=== PATIENT | female | born 1930 | race Caucasian/White ===

== ENCOUNTER 2016-08-23 22:00 | Inpatient (IN) | payer MEDICARE ==
--- NOTE | ~2016-08-23 | HP ---
History And Physical [address] [place]. [address] NAME: CHAPIN WHITLEY : 29 STATUS : ADM IN [facility]#: [id number] AGE: 85 ADM/REG DATE : 08/24/16 MR#: [id number] REPORT SERV DATE: 08/24/16 DICTATED BY: ZAID REEVES DATE: 08/24/16 REPORT STATUS : Draft TRANSCRIBED BY: MODL DATE: 08/24/16 DATE OF ADMISSION: 08/24/2016 CHIEF COMPLAINT: An 85-year-old female, presenting with volume overload, shortness of breath. HISTORY OF PRESENT ILLNESS: The patient's history was obtained through careful interview with the patient and daughter coupled with review of [facility] and [facility] medical records. For reasons unknown to the family, the patient was told to come off her diuretics about two to three weeks ago. This seems to be directly correlate to the patient's increasing illness. Over the last week in particular, she has had massive lower extremity edema to the point where she cannot even walk without assistance and she has had increasing shortness of breath characterized by dyspnea on exertion, but also orthopnea, paroxysmal nocturnal dyspnea, as the patient has been having to sleep in a recliner sitting up at night. She describes a nonproductive cough, abdominal bloating. She has had a poor appetite, but no nausea or vomiting. No abdominal pain. No chest pain. No headache. No back pain. No pain complaints whatsoever. She does not even have pain related to her swelling. REVIEW OF SYSTEMS: Otherwise, a 14-point review of systems was obtained was negative. PAST MEDICAL HISTORY: 1. Atrial fibrillation, supraventricular tachycardia. 2. Diastolic congestive heart failure. 3. Hypertension. 4. Diabetes. 5. Possible pulmonary fibrosis. 6. Pneumonia in 2004. 7. Thyroid nodule. 8. Shingles with post-herpetic neuralgia. 9. Remote DVT. 10.Compression fracture of the spine. PAST SURGICAL HISTORY: Cholecystectomy. ALLERGIES: SULFA. SOCIAL HISTORY: No tobacco abuse. No alcohol abuse. Has been a for 7 years. Lives with her son. Ambulates with a cane, has supportive daughter at bedside. History And Physical [address] [address] NAME: CHAPIN WHITLEY : 29 STATUS : ADM IN PAT#: [id number] AGE: 85 ADM/REG DATE : 08/24/16 MR#: [id number] REPORT SERV DATE: 08/24/16 DICTATED BY: ZAID REEVES DATE: 08/24/16 REPORT STATUS : Draft TRANSCRIBED BY: SHANITA DATE: 08/24/16 FAMILY HISTORY: Mother at young age. Father with cancer. CURRENT MEDICATIONS: Include Lipitor 5 mg p.o. daily, Cardizem CD 360 mg p.o. daily, Neurontin 200 mg p.o. b.i.d., Toprol-XL 100 mg p.o. b.i.d., Starlix 120 mg p.o. t.i.d., Xarelto 20 mg p.o. daily, Janumet 50/500 p.o. b.i.d., vitamin D supplement and supplement with vitamin C, vitamin E, zinc copper lutein. PHYSICAL EXAMINATION: VITAL SIGNS: Temperature 97.8, pulse 118, blood pressure 133/79, respiratory rate 16, and O2 saturation 88% on room air. GENERAL: An ill-appearing female, in evidence of distress secondary to shortness of breath. HEENT: Pupils equal, round, and reactive to light. No conjunctival pallor. No scleral icterus. Nares are patent. Oropharynx is clear of obstruction. Moist mucous membranes. NECK: Trachea midline. No thyromegaly. LYMPH: No cervical lymphadenopathy. No supraclavicular lymphadenopathy. RESPIRATORY: The patient has wet rales on examination that predominate all the way to about 3/4 up the lung field bilaterally and symmetrically. She has dullness to percussion suggest quite large bilateral pleural effusions by exam. No wheezes. The patient has a labored respiratory effort. CARDIOVASCULAR: Tachycardic, irregularly irregular. No murmurs, rubs, or gallops. The patient does have deeply pitting edema probably about two or so centimeters in depth around her shins and ankles and the edema extends all the way up into her groin area symmetrically. ABDOMEN: Quite distended by examination. No tympanic resonance on percussion, but nontender throughout. No hepatosplenomegaly. DERMATOLOGICAL: Warm and dry extremities. No pallor. No cyanosis. A slight erythema related to patient's severe lower extremity edema and swelling. PSYCHIATRIC: Normal affect. Good mood. Alert and oriented x3. LABORATORY DATA: White blood cell count 8.5, hemoglobin 14, hematocrit 43, platelets 269, sodium 139, potassium 4.2 chloride 103, bicarb 25, BUN 15, creatinine 0.96, glucose 107, brain natriuretic peptide 636, troponin negative. INR 1.3. STUDIES: 1. Chest x-ray by my own evaluation shows cardiomegaly, pulmonary edema, bilateral pleural effusions. 2. EKG by my own evaluation shows rapid atrial fibrillation, low QRS voltage, left posterior fascicular block. ASSESSMENT AND PLAN: 1. Hypoxic respiratory failure, provide supportive care. 2. Congestive heart failure exacerbation, check an echocardiogram to define function. Place on IV diuretic, beta-casper. Add KAVIN inhibitor. 3. Rapid atrial fibrillation. Check telemetry. Continue Xarelto and continue beta casper and Cardizem and add p.r.n. p.o. short-acting Cardizem for elevated pulse. History And Physical [address] [address] NAME: CHAPIN WHITLEY : 29 STATUS : ADM IN [facility]#: [id number] AGE: 85 ADM/REG DATE : 08/24/16 MR#: [id number] REPORT SERV DATE: 08/24/16 DICTATED BY: ZAID REEVES DATE: 08/24/16 REPORT STATUS : Draft TRANSCRIBED BY: SHANITA DATE: 08/24/16 KPL/SHANITA Zaid Reeves M.D. / [id number] CC: Jose Myrick M.D. Gordon Graham, M.D.
--- NOTE | ~2016-08-23 | CN ---
Consultation Report [facility] [address] [place]. [address] NAME: CHAPIN WHITLEY : 28 STATUS : ADM IN PAT#: [id number] AGE: 85 ADM/REG DATE : 08/24/16 MR#: [id number] REPORT SERV DATE: 08/24/16 DICTATED BY: AMARI DOMINIQUE DATE: 08/24/16 REPORT STATUS : Draft TRANSCRIBED BY: MODL DATE: 08/24/16 CARDIOVASCULAR CONSULTATION DATE OF CONSULTATION: 08/24/2016 INDICATION: Congestive heart failure. HISTORY OF PRESENT ILLNESS: This is an 85-year-old patient of my partner, Dr. Charli Casarez. She has a history of chronic atrial fibrillation with a rate control and anticoagulation strategy. She has a history of chronic kidney disease, obstructive sleep apnea, and chronic mixed systolic and diastolic congestive heart failure. She saw Dr. Casarez about a week ago. The patient says Dr. Casarez stopped multiple medications including her diuretics. The office note, however, just says he increased the Cardizem from 240-360 mg daily. However, no diuretics are listed on the home office medicine sheet. The patient is admitted with worsening dyspnea, lower extremity edema, and is found to have acute on chronic mixed systolic and diastolic congestive heart failure. She remains quite volume overloaded. An echo this admission read by Dr. Casarez demonstrates an EF declined from 45% to 30%. The patient denies any symptoms of chest pain. She has not had any palpitations. She actually feels better since admission. PAST MEDICAL HISTORY: 1. Chronic combined systolic and diastolic congestive heart failure. 2. Chronic kidney disease. 3. Hypertension. 4. Hypercholesterolemia. 5. Obstructive sleep apnea. 6. Chronic atrial fibrillation. ALLERGIES: SULFA AND TRAMADOL. MEDICATIONS: On admission, include Lipitor 10 mg daily, Cardizem CD 360 mg daily, Neurontin, Toprol-XL 100 mg twice a day, Starlix, Xarelto 20 mg daily, Janumet, multivitamin. SOCIAL HISTORY: She does not smoke or drink alcohol. FAMILY HISTORY: There is no family history of early coronary artery disease. REVIEW OF SYSTEMS: A complete review of systems was obtained, which is negative in detail except as mentioned above in the HPI. Consultation Report [facility] [address] [facility] [place]. [address] NAME: CHAPIN WHITLEY : 29 STATUS : ADM IN PAT#: [id number] AGE: 85 ADM/REG DATE : 08/24/16 MR#: [id number] REPORT SERV DATE: 08/24/16 DICTATED BY: AMARI DOMINIQUE DATE: 08/24/16 REPORT STATUS : Draft TRANSCRIBED BY: SHANITA DATE: 08/24/16 PHYSICAL EXAMINATION: VITAL SIGNS: Blood pressure 110/70, heart rate of 80 and regular, respiratory rate of 14. GENERAL: Comfortable in no acute distress. HEENT: Anicteric. No xanthelasma. Lips without cyanosis. NECK: No JVD. Carotids 2+ and symmetric. No carotid bruits. LUNGS: CTA bilaterally. No wheezes or rhonchi. No accessory muscle use. COR: Irregularly irregular. Normal S1, S2. ABD: Soft, nontender, nondistended. Normal bowel sounds. No abdominal bruits. EXT: There was 2+ bilateral lower extremity edema. SKIN: Warm. Dry. No venous stasis changes. MS: No kyphosis. NEURO/PSYCH: Oriented x3. No anxiety or depression. LABORATORY STUDIES: White count of 8.4, hematocrit of 41.9. Creatinine of 1.2, potassium 4.9. BNP of 636. Troponin less than 0.02 x2. Telemetry strip show atrial fibrillation rate in the 80s. I reviewed an echocardiogram report described above demonstrating EF declined from 45% to 30%. IMPRESSION: This is an 85-year-old woman with acute on chronic mixed systolic and diastolic congestive heart failure. There is some confusion about medicine changes as an outpatient. This may have contributed to her hospital admission. She is quite volume overloaded still. I agree with plans for aggressive IV diuresis. She may do better on a beta-casper than calcium channel casper given her systolic dysfunction. I will have Dr. Casarez address her medicines when he returns in the morning. WW/SHANITA ari Dominique M.D. / [id number] CC: Jose Fowler M.D.
--- NOTE | ~2016-08-23 | DS ---
Discharge Summary [facility] [address] [place]. [address] NAME: CHAPIN WHITLEY : 28 STATUS : DIS IN PAT#: [id number] AGE: 85 ADM/REG DATE : 08/24/16 MR#: [id number] REPORT SERV DATE: 08/27/16 DICTATED BY: DATE: REPORT STATUS : Draft TRANSCRIBED BY: MODL DATE: 08/27/16 ADMISSION DATE: 08/24/2016 DISCHARGE DATE: 08/27/2016 The patient was admitted to the [facility]. CONSULTANTS: Dr. Charli Casarez. DISCHARGE DIAGNOSES: 1. Acute congestive heart failure exacerbation - mixed systolic and diastolic. Ejection fraction 30%. 2. Chronic atrial fibrillation with rapid ventricular response at admission. Now rate controlled, on chronic anticoagulation with history of failed cardioversion in the past. 3. Hypotension at admission - resolved. Intolerant of KAVIN inhibitor due to hypotension. 4. Ien-mezvgza-ifuywxvcu diabetes mellitus type 2 with hypoglycemia during hospitalization and hemoglobin A1c of 5.3. Starlix discontinued for re-evaluation for discontinuation of Janumet in the outpatient setting. 5. Hyperlipidemia. 6. History of spinal compression fracture. 7. History of remote DVT. 8. Bilateral lower extremity lymphedema - chronic. 9. History of shingles. 10.Postherpetic neuralgia. 11.Possible history of pulmonary fibrosis. 12.Possible obstructive sleep apnea with long-term nocturnal oxygen usage. 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 14.Urinary tract infection - likely due to Hernández catheterization during the hospitalization. Culture pending at the time of discharge. 15.Acute on chronic hypoxemic respiratory failure due to congestive heart failure exacerbation - resolved. IMAGIN. PA lateral chest x-ray 08/23/2016 for shortness of breath shows marked cardiomegaly with pleural effusions and an old compression injury of the lower thoracic spine. 2. Portable chest x-ray 08/24/2016 showing improving congestive heart failure pattern compared to 08/23/2016. 3. Echocardiogram 08/24/2016 shows severe left ventricular dysfunction with ejection fraction of 31%, previously noted 45-50%. Anteroseptal wall akinesis has progressed. Moderate right ventricular dysfunction noted previously. Mild right ventricular dilatation noted previously. Biatrial dilatation noted previously. Mild mitral valvular regurgitation. PERTINENT LABS: White blood cell count throughout admission was normal, hemoglobin values ranging from 12-14, platelet count normal. Coagulation studies with INR between 1.3 and 3.1, on anticoagulation. Creatinine values ranging from 0.96-1.23. Electrolytes normal. Discharge Summary [facility] [id number] [place]. [address] NAME: CHAPIN WHITLEY : 28 STATUS : DIS IN PAT#: [id number] AGE: 85 ADM/REG DATE : 08/24/16 MR#: [id number] REPORT SERV DATE: 08/27/16 DICTATED BY: DATE: REPORT STATUS : Draft TRANSCRIBED BY: MODL DATE: 08/27/16 Glucose values 88-130 off medications during admission. BNP 636, troponin times 2 negative. TSH normal. Hemoglobin A1c 5.3. Urinalysis with greater than 182 white blood cells and large amount of leukocyte esterase with culture pending at the time of discharge. BRIEF HISTORY: For full details, please see the previously dictated history of present illness by Kolby Perez. This is an 85-year-old female, presenting with shortness of breath and increasing dyspnea. Reportedly, she was told to come off her diuretic (Bumex) by her nuclear cardiology technologist several weeks ago, and thereafter, developed increasing lower extremity edema, difficulty ambulating due to edema, and increasing shortness of breath characterized primarily by dyspnea on exertion but also orthopnea, paroxysmal nocturnal dyspnea. She also reported some increased abdominal girth. Labs and imaging in the emergency department were consistent with acute congestive heart failure exacerbation, and the patient was admitted to the Hospitalist Service for further management. HOSPITAL COURSE: The patient was admitted to [address] [place] [address], on the congestive heart failure order set. She was placed on IV Lasix and a Hernández catheter was placed at her request for increased urinary frequency on Lasix. With this, she diuresed well, had improvement in her edema and her shortness of breath, and did not require supplemental oxygen during the day further. For her atrial fibrillation with rapid ventricular response, she was placed on her home medications of Toprol-XL and Cardizem, withhold parameters as she was hypotensive initially. This was felt most likely due to lisinopril which was discontinued. She can be considered intolerant of lisinopril due to hypotension, and is not being discharged on lisinopril despite congestive heart failure because of intolerance. The patient's creatinine remained stable between 0.9 and 1.2 on diuretics, and she appears to have some chronic kidney disease, stage II, which is mild and did not require any nephrology evaluation this admission. She also was noted to have hypoglycemia with blood sugars ranging from 88 to 130 off medications this admission. She takes three oral hypoglycemics at home and one is being discontinued for discharge, for re-evaluation by her primary care provider. Her hemoglobin A1c is 5.3, and she is probably prone to hypoglycemia as an outpatient. Her Hernández catheter was discontinued when the IV Lasix was discontinued on the third day of hospitalization, and she complained of some dysuria. A urinalysis was obtained, and showed large amount of leukocyte esterase, with greater than 182 white blood cells. She has been treated with Levaquin for presumptive urinary tract infection. The culture results will need to be followed up as an outpatient to determine adequacy of empiric antibiotic selection. DISCHARGE DISPOSITION: The patient is being discharged to home in the care of her son with no specific activity restrictions. She should resume her home oxygen 2-3 L nightly per prior regimen. She should adhere to a cardiac, 1200 mL fluid restricted diet at discharge. Home health is being set up for medication management, disease education, and home physical Discharge Summary [address] [address] NAME: CHAPIN WHITLEY : 28 STATUS : DIS IN PAT#: [id number] AGE: 85 ADM/REG DATE : 08/24/16 MR#: [id number] REPORT SERV DATE: 08/27/16 DICTATED BY: DATE: REPORT STATUS : Draft TRANSCRIBED BY: MODObinna DATE: 08/27/16 therapy for additional strengthening. She will have multiple followup appointments including with primary care provider, Chidi Hurd, in 7-14 days for a repeat urinalysis and review of urine culture results from [facility]. She also needs to follow up with nuclear cardiology technologist, Dr. Casarez, in two to four weeks regarding congestive heart failure and atrial fibrillation. DISCHARGE MEDICATIONS: Include: 1. Lipitor 5 mg p.o. at bedtime. 2. Cardizem 360 mg p.o. at bedtime. 3. Neurontin 200 mg p.o. twice a day. 4. Toprol-XL 100 mg p.o. twice a day. 5. Xarelto 20 mg p.o. at bedtime. 6. Janumet 50/500, one tablet p.o. twice a day. 7. PreserVision one tablet p.o. twice a day. 8. Vitamin D 1000 international units p.o. daily. 9. Bumex 1 mg p.o. daily. 10.Levaquin 750 mg p.o. daily for four days to start on 08/28/2016 - to complete a five- day total course. 11.Her Starlix was discontinued for reasons noted above. Thirty five minutes was spent in completion of the discharge. LIZZIE/SHANITA Jarek Betts M.D. / [id number] CC: Jose Fowler M.D. Gordon Graham, M.D.
[~2016-08-23 22:00] MED LIST: ASABAYER PO; BUM1 PO; CORDARONE PO; FOSAMAX70 MG PO; HYZAAR 50/12.51 TAB PO; JANUMET1 TA1 PO; JANUMET1 TAB PO; KLOR-CON M2020 MEQ PO; LIPITOR10 PO; LOP25 PO; NEUR300 PO; NEUR600 PO; STARLIX120 PO; TOPXL100 PO; XARELTO20 MG PO
[2016-08-23 22:39] LABS: INTERNATIONAL NORMAL RATI 1.3 UNITS (-); PROTIME (NOT ORD) 16.2 SEC (12.0-14.5)
[2016-08-23 23:29] LABS: BASOPHILS 0.2 %; BASOPHILS ABSOLUTE 0.02 10/3/uL (0.0-0.16); EOSINOPHILS 1.8 %; EOSINOPHILS ABSOLUTE 0.15 10/3/uL (0.0-0.53); HEMATOCRIT 42.9 % (36.0-48.0); HEMOGLOBIN 14.5 g/dL (12.0-16.0); IMMATURE GRANULOCYTES 0.5 %; IMMATURE GRANULOCYTES ABSOLUTE 0.04 10/3/uL (0.0-0.11); LYMPHOCYTES 20.6 %; LYMPHOCYTES ABSOLUTE 1.76 10/3/uL (0.67-4.30); MEAN CORPUS HGB CONC 33.8 g/dL (32.0-36.0); MEAN CORPUSCULAR HEMOGLOB 31.9 pg (26.0-34.0); MEAN CORPUSCULAR VOLUME 94.3 fL (80-100); MEAN PLATELET VOLUME 9.9 fL (9.2-13.0); MONOCYTES 13.2 %; MONOCYTES ABSOLUTE 1.13 10/3/uL (0.21-1.20); NEUTROPHILS 63.7 %; NEUTROPHILS ABSOLUTE 5.44 10/3/uL (2.02-8.40); PLATELET COUNT 269 10/3/uL (150-400); RBC DISTRIBUTION WIDTH 15.3 % (12.0-16.0); RED CELL COUNT 4.55 10/6/uL (4.0-5.6); WHITE BLOOD CELLS 8.5 10/3/uL (4.5-10.5)
[2016-08-23 23:31] LABS: ER CBC TAT 0 Hrs 59 Mins; MANUAL DIFF NO %
[2016-08-23 23:43] LABS: BUN (BLOOD UREA NITROGEN) 15 MG/DL (6-23); CALCIUM, SERUM 8.7 MG/DL (8.5-10.4); CHEST PAIN PROFILE TAT 0 Hrs 14 Mins; CHLORIDE, SERUM 103 MMOL/L (96-112); CO2 (CARBON DIOXIDE) 25 MMOL/L (24-34); CREATININE 0.96 MG/DL (0.55-1.02); GFR AFRICAN AMERICAN 62 ML/MIN (>=60); GFR NON AFRICAN AMERICAN 54 ML/MIN (>=60); GLUCOSE, SERUM 107 MG/DL (60-99); POTASSIUM, SERUM 4.2 MMOL/L (3.5-5.3); SODIUM, SERUM 139 MMOL/L (135-148); TROPONIN I <0.02 NG/ML (<0.05)
[2016-08-24] MEDS ORDERED: LIPITOR10 PO (01:07)
[2016-08-24] MEDS ORDERED: CARDCD360 PO (01:07)
[2016-08-24] MEDS ORDERED: NEUR600 PO (01:09)
[2016-08-24] MEDS ORDERED: TOPXL100 PO (01:10)
[2016-08-24] MEDS ORDERED: JANUMET1 TA1 PO (01:10)
[2016-08-24] MEDS ORDERED: XARELTO20 MG PO (01:11)
[2016-08-24] MEDS ORDERED: STARLIX120 PO (01:11)
[2016-08-24] MEDS ORDERED: PRESERVISION A1 EAC1 PO (01:12)
[2016-08-24] MEDS ORDERED: VITAMIN D31000 UNIT PO (01:13)
[2016-08-24 09:53] LABS: BASOPHILS 0.4 %; BASOPHILS ABSOLUTE 0.03 10/3/uL (0.0-0.16); EOSINOPHILS 1.3 %; EOSINOPHILS ABSOLUTE 0.11 10/3/uL (0.0-0.53); HEMATOCRIT 41.9 % (36.0-48.0); HEMOGLOBIN 13.8 g/dL (12.0-16.0); IMMATURE GRANULOCYTES 0.2 %; IMMATURE GRANULOCYTES ABSOLUTE 0.02 10/3/uL (0.0-0.11); LYMPHOCYTES 15.2 %; LYMPHOCYTES ABSOLUTE 1.28 10/3/uL (0.67-4.30); MEAN CORPUS HGB CONC 32.9 g/dL (32.0-36.0); MEAN CORPUSCULAR HEMOGLOB 31.2 pg (26.0-34.0); MEAN CORPUSCULAR VOLUME 94.6 fL (80-100); MEAN PLATELET VOLUME 10.2 fL (9.2-13.0); MONOCYTES 15.7 %; MONOCYTES ABSOLUTE 1.32 10/3/uL (0.21-1.20); NEUTROPHILS 67.2 %; NEUTROPHILS ABSOLUTE 5.65 10/3/uL (2.02-8.40); PLATELET COUNT 278 10/3/uL (150-400); RBC DISTRIBUTION WIDTH 15.4 % (12.0-16.0); RED CELL COUNT 4.43 10/6/uL (4.0-5.6); WHITE BLOOD CELLS 8.4 10/3/uL (4.5-10.5)
[2016-08-24 09:54] LABS: MANUAL DIFF NO %
[2016-08-24 09:59] LABS: INTERNATIONAL NORMAL RATI 3.1 UNITS (-)
[2016-08-24 10:01] LABS: PROTIME (NOT ORD) 31.7 SEC (12.0-14.5)
[2016-08-24 10:08] LABS: A/G RATIO 0.9 (0.7-1.9); ALBUMIN 2.9 G/DL (3.5-5.0); ALKALINE PHOSPHATASE 73 U/L (45-117); CALCIUM, SERUM 8.3 MG/DL (8.5-10.4); CHLORIDE, SERUM 104 MMOL/L (96-112); CO2 (CARBON DIOXIDE) 29 MMOL/L (24-34); CREATININE 1.16 MG/DL (0.55-1.02); GFR AFRICAN AMERICAN 49 ML/MIN (>=60); GFR NON AFRICAN AMERICAN 43 ML/MIN (>=60); GLOBULIN 3.2 G/DL (2.5-4.1); SGPT(ALT) 33 U/L (5-65); SODIUM, SERUM 138 MMOL/L (135-148); TOTAL PROTEIN 6.1 G/DL (6.0-8.5); TROPONIN I <0.02 NG/ML (<0.05)
[2016-08-24 10:09] LABS: BUN (BLOOD UREA NITROGEN) 19 MG/DL (6-23); GLUCOSE, SERUM 133 MG/DL (60-99); POTASSIUM, SERUM 4.9 MMOL/L (3.5-5.3); SGOT(AST) 34 U/L (5-40); TOTAL BILIRUBIN 0.6 MG/DL (0-1.2)
[2016-08-24 10:10] LABS: CK-MB 0.7 NG/ML; CPK 122 U/L (0-200)
[2016-08-25 06:10] LABS: BASOPHILS 0.4 %; BASOPHILS ABSOLUTE 0.03 10/3/uL (0.0-0.16); EOSINOPHILS 2.6 %; EOSINOPHILS ABSOLUTE 0.19 10/3/uL (0.0-0.53); HEMATOCRIT 38.9 % (36.0-48.0); HEMOGLOBIN 12.9 g/dL (12.0-16.0); IMMATURE GRANULOCYTES 0.4 %; IMMATURE GRANULOCYTES ABSOLUTE 0.03 10/3/uL (0.0-0.11); LYMPHOCYTES ABSOLUTE 1.48 10/3/uL (0.67-4.30); MEAN CORPUS HGB CONC 33.2 g/dL (32.0-36.0); MEAN CORPUSCULAR HEMOGLOB 30.9 pg (26.0-34.0); MEAN CORPUSCULAR VOLUME 93.1 fL (80-100); MONOCYTES 16.4 %; MONOCYTES ABSOLUTE 1.21 10/3/uL (0.21-1.20); NEUTROPHILS 60.2 %; NEUTROPHILS ABSOLUTE 4.46 10/3/uL (2.02-8.40); PLATELET COUNT 253 10/3/uL (150-400); RBC DISTRIBUTION WIDTH 15.6 % (12.0-16.0); RED CELL COUNT 4.18 10/6/uL (4.0-5.6); WHITE BLOOD CELLS 7.4 10/3/uL (4.5-10.5)
[2016-08-25 06:11] LABS: MANUAL DIFF NO %
[2016-08-25 06:22] LABS: BUN (BLOOD UREA NITROGEN) 27 MG/DL (6-23); CALCIUM, SERUM 8.4 MG/DL (8.5-10.4); CHLORIDE, SERUM 101 MMOL/L (96-112); CO2 (CARBON DIOXIDE) 30 MMOL/L (24-34); CREATININE 1.28 MG/DL (0.55-1.02); GFR AFRICAN AMERICAN 44 ML/MIN (>=60); GFR NON AFRICAN AMERICAN 38 ML/MIN (>=60); GLUCOSE, SERUM 100 MG/DL (60-99); POTASSIUM, SERUM 3.7 MMOL/L (3.5-5.3); SODIUM, SERUM 141 MMOL/L (135-148)
[2016-08-26 06:11] LABS: BUN (BLOOD UREA NITROGEN) 28 MG/DL (6-23); CHLORIDE, SERUM 103 MMOL/L (96-112); CO2 (CARBON DIOXIDE) 32 MMOL/L (24-34); CREATININE 1.07 MG/DL (0.55-1.02); GFR AFRICAN AMERICAN 54 ML/MIN (>=60); GFR NON AFRICAN AMERICAN 47 ML/MIN (>=60); GLUCOSE, SERUM 113 MG/DL (60-99); SODIUM, SERUM 139 MMOL/L (135-148)
[2016-08-26 20:11] LABS: ASCORBIC ACID (UR NOT ORDER) NEG (NEG); BILIRUBIN, URINE NEGATIVE (NEG); KETONE, URINE NEGATIVE (NEG); LEUKOCYTE ESTERASE(NOT OR LARGE (NEG); WBC (NOT ORDERED) (RFLEX) > 182 (0-5)
[2016-08-27 05:48] LABS: BASOPHILS 0.3 %; BASOPHILS ABSOLUTE 0.02 10/3/uL (0.0-0.16); EOSINOPHILS ABSOLUTE 0.29 10/3/uL (0.0-0.53); HEMATOCRIT 42.5 % (36.0-48.0); HEMOGLOBIN 13.8 g/dL (12.0-16.0); IMMATURE GRANULOCYTES 0.6 %; IMMATURE GRANULOCYTES ABSOLUTE 0.04 10/3/uL (0.0-0.11); LYMPHOCYTES 16.7 %; MEAN CORPUS HGB CONC 32.5 g/dL (32.0-36.0); MEAN CORPUSCULAR HEMOGLOB 30.7 pg (26.0-34.0); MEAN CORPUSCULAR VOLUME 94.4 fL (80-100); MEAN PLATELET VOLUME 10.1 fL (9.2-13.0); MONOCYTES 16.7 %; NEUTROPHILS 61.7 %; NEUTROPHILS ABSOLUTE 4.43 10/3/uL (2.02-8.40); PLATELET COUNT 274 10/3/uL (150-400); RBC DISTRIBUTION WIDTH 15.2 % (12.0-16.0); WHITE BLOOD CELLS 7.2 10/3/uL (4.5-10.5)
[2016-08-27 05:56] LABS: MANUAL DIFF NO %
[2016-08-27 06:04] LABS: BUN (BLOOD UREA NITROGEN) 30 MG/DL (6-23); CALCIUM, SERUM 8.7 MG/DL (8.5-10.4); CHLORIDE, SERUM 103 MMOL/L (96-112); CO2 (CARBON DIOXIDE) 28 MMOL/L (24-34); CREATININE 1.12 MG/DL (0.55-1.02); GFR AFRICAN AMERICAN 52 ML/MIN (>=60); GFR NON AFRICAN AMERICAN 44 ML/MIN (>=60); GLUCOSE, SERUM 108 MG/DL (60-99); POTASSIUM, SERUM 3.9 MMOL/L (3.5-5.3); SODIUM, SERUM 140 MMOL/L (135-148)
[2016-08-27] MEDS ORDERED: BUM1 PO (09:29)
[2016-08-27] MEDS ORDERED: LEVAQUIN750 MG PO (09:30)
[2016-12-11] MEDS ORDERED: PRIN10 PO (08:14)
[2016-12-11] MEDS ORDERED: JANUMET PO (21:14)
[2016-12-11] MEDS ORDERED: PRESERVISION A1 EAC1 PO (21:21)
[2016-12-11] MEDS ORDERED: SENTAB PO (21:22)
[2016-12-13] MEDS ORDERED: PRIN2.5 PO (12:30)
[2016-12-13] MEDS ORDERED: CARDCD240 PO (12:30)
== END 2016-08-27 11:48 | disposition home health service (06) | DRG 291 ==
LOC: ER 22:00 → 7NO 08-24 02:01
PROVIDERS: Hospitalist
PROC: 0T9B70Z Drainage of Bladder with Drainage Device, Via Natural or Artificial Opening (ICD-10-PCS; principal; 2016-08-24)
DX: I13.0 Hypertensive heart and chronic kidney disease with heart failure and stage 1 through stage 4 chronic kidney disease, or unspecified chronic kidney disease (principal); I50.43 Acute on chronic combined systolic (congestive) and diastolic (congestive) heart failure; J96.21 Acute and chronic respiratory failure with hypoxia; N17.9 Acute kidney failure, unspecified; J84.10 Pulmonary fibrosis, unspecified; E11.649 Type 2 diabetes mellitus with hypoglycemia without coma; I95.9 Hypotension, unspecified; E11.65 Type 2 diabetes mellitus with hyperglycemia; B02.29 Other postherpetic nervous system involvement; I27.2 Other secondary pulmonary hypertension; T83.518A Infection and inflammatory reaction due to other urinary catheter, initial encounter; Z99.81 Dependence on supplemental oxygen; I48.2 Chronic atrial fibrillation; E78.5 Hyperlipidemia, unspecified; I89.0 Lymphedema, not elsewhere classified; G47.33 Obstructive sleep apnea (adult) (pediatric); N18.2 Chronic kidney disease, stage 2 (mild); I34.0 Nonrheumatic mitral (valve) insufficiency; T46.4X5A Adverse effect of angiotensin-converting-enzyme inhibitors, initial encounter; Y73.1 Therapeutic (nonsurgical) and rehabilitative gastroenterology and urology devices associated with adverse incidents; Y92.230 Patient room in hospital as the place of occurrence of the external cause; K59.00 Constipation, unspecified; Z79.02 Long term (current) use of antithrombotics/antiplatelets; Z86.718 Personal history of other venous thrombosis and embolism; Y92.009 Unspecified place in unspecified non-institutional (private) residence as the place of occurrence of the external cause; Z88.2 Allergy status to sulfonamides; Z88.8 Allergy status to other drugs, medicaments and biological substances
CPT/HCPCS: 71010; 71020; 80048; 80053; 81001; 82550; 82553; 82962; 83036; 83735; 83880; 84443; 84484; 85025; 85610; 85730; 87086; 93005; 94640; 96374; 99291; A9270-GY; C8929; J1940; J1956; Q9957